=== PATIENT | male | born 1950 | race Two or more races ===

== ENCOUNTER 2018-07-11 04:55 | Day surgery (SDC) | payer OTHER ==
[~2018-07-11 04:55] MED LIST: AVAPRO150 MG PO; NAPR500T14 PO; VASOTEC20 M1 PO
== END 2018-07-11 10:30 | disposition home or self-care (01) ==
LOC: CIR.AMB 04:55
DX: M65.842 Other synovitis and tenosynovitis, left hand (principal)

== ENCOUNTER 2021-09-02 08:25 | Outpatient (CLI) | payer OTHER | END 2021-09-02 08:29 | disposition home or self-care (01) | LOC: RX STUDY 08:25 | PROVIDERS: ATTEND Otolaryngology | DX: K44.9 Diaphragmatic hernia without obstruction or gangrene (principal); R13.13 Dysphagia, pharyngeal phase ==

== ENCOUNTER 2022-11-24 19:05 | Emergency (ER) | payer OTHER ==
[~2022-11-24] VITALS: Ht 165.1 cm; Wt 63.5 kg
[2022-11-24] MEDS ORDERED: VASOTEC5 MG (20:02)
[2022-11-24] MEDS ORDERED: LEVOTHYROXINE25 MCG (20:02)
[2022-11-24] MEDS ORDERED: ATORVASTATIN CA10 MG (20:02)
[2022-11-25] MEDS ORDERED: RELAFEN DS1000 MG PO (03:28)
== END 2022-11-25 03:52 ==
LOC: ER 19:05
DX: R07.9 Chest pain, unspecified (principal); I10 Essential (primary) hypertension; E78.00 Pure hypercholesterolemia, unspecified; E03.9 Hypothyroidism, unspecified

== ENCOUNTER 2023-09-06 06:36 | Day surgery (SDC) | payer OTHER ==
[~2023-09-06 06:36] MED LIST changes: +ATORVASTATIN CA10 MG PO; +LEVOTHYROXINE25 MCG; +RELAFEN DS1000 MG PO; +VASOTEC5 MG PO
== END 2023-09-06 10:05 | disposition home or self-care (01) ==
LOC: CIR.AMB 06:36
PROVIDERS: ATTEND Surgery Surgery of the Hand
DX: M67.844 Other specified disorders of tendon, left hand (principal); E03.9 Hypothyroidism, unspecified; Z20.822 Contact with and (suspected) exposure to COVID-19

== ENCOUNTER → 2024-09-27 | Emergency (ER) | payer OTHER ==
[~2024-09-27] VITALS: Ht 167.6 cm; Wt 73.9 kg
[~2024-09-27] MED LIST changes: +ENALAPRILAT DIHYDRATE 2.5 MG/2 ML VIAL IV STA; +NAPROSYN125 MG/5 M PO; +NITROGLYCERIN 0.2 MG/HR PATCH.TD24 TD STA; +NITROGLYCERIN 0.4 MG TAB.SUBL SL SCH; +NITROGLYCERIN 1 INCH OINT..GM. TD STA; +NITROGLYCERIN IN 5 % DEXTROSE 50 MG/250 ML KIT IV SCH; +SIMVASTATIN5 MG PO
[2024-09-27 14:33] LABS: HEMOGLOBIN 15.1 g/dL (13-16.00); MEAN CELL VOLUME 87.5 fL (80.0-100.00); MEAN CORPUSCULAR HEMOGLOBIN 29.3 pg (27.00-32.0); MEAN CORPUSCULAR HGB CONC 33.5 g/dl (32.0-36.0); PLATELET COUNT 271 K/uL (150-450); RED BLOOD COUNT 5.14 M/uL (4.00-6.00)
[2024-09-27 14:55] LABS: CALCIUM 9.3 mg/dL (8.5-10.1); CREATININE SERUM 1.12 mg/dL (0.70-1.30); GFR 63.74; POTASSIUM 4.39 mEq/L (3.5-5.1)
[2024-09-27 15:20] VITALS: BP 175/23; O2SAT 100
[2024-09-27 18:58] LABS: URINE APPEARANCE Clear; URINE BILIRRUBIN Negative (NEGATIVE); URINE BLOOD Negative; URINE COLOR Yellow; URINE GLUCOSE Negative (NEGATIVE); URINE KETONE 15 (NEGATIVE); URINE LEUKOCYTE Negative; URINE NITRATE Negative; URINE PROTEIN Negative (NEGATIVE); URINE UROBILINOGEN 0.2 E.U./dl
[2024-09-27 19:03] LABS: URINE BACTERIA 20.1 uL (0.0-1933); URINE EPITHELIAL CELLS 2.7 uL (0.0-38.8)
[2024-09-27 19:48] LABS: URINE RBC 1.3 uL (0.0-20.8); URINE WBC 1.3 uL (0.0-23.2)
== END | disposition designated cancer center or children's hospital (05) ==
LOC: ER 11:14
PROVIDERS: General Practice
DX: R07.9 Chest pain, unspecified (principal); I20.0 Unstable angina; I10 Essential (primary) hypertension